=== PATIENT | male | born 1995 | race African-American/Black ===

== ENCOUNTER 2017-07-20 16:52 | Emergency (ER) | payer OTHER ==
[~2017-07-20] VITALS: Ht 154.9 cm; Wt 77.1 kg
[2017-07-20 17:40] VITALS: BP 117/55
--- NOTE | 2017-07-20 18:04 | ED General ---
General Chief Complaint: Cough/Cold/Flu Symptoms Stated Complaint: THROAT PAIN/VOMITING RED AND YELLOW Nursing Triage Note: AMB TO ED HAS BEEN HAVING COUGH CONGESTION. TODAY WAS COUGHING TILL HE VOMITED. Nursing Sepsis Screen: No Definite Risk Source of Information: Patient Exam Limitations: No Limitations History of Present Illness Date Seen by Provider: Jul 20, 2017 Time Seen by Provider: 18:02 Initial Comments To ER with c/o sore throat, loss of voice x2 days. No fevers, denies cough. Last night, was drinking hard liquor, this morning vomited yellow bile with what appeared to be a tinge of blood. C/o left upper abdominal pain. Timing/Duration: 1-2 Days Severity: Moderate Associated Systoms: No Cough, No Fever/Chills, Nausea/Vomiting Allergies and Home Medications Allergies Coded Allergies: No Known Drug Allergies (Unverified , 07/20/17) Constitutional: see HPI, No chills, No fever EENTM: see HPI Respiratory: see HPI, No cough Gastrointestinal: abdominal pain, hematemesis, nausea, vomiting Genitourinary: no symptoms reported Musculoskeletal: no symptoms reported Skin: no symptoms reported Past Gkbucjo-Rilvyb-Ridzdt Hx Patient Social History Alcohol Use: Occasionally Uses Recreational Drug Use: No Smoking Status: Never a Smoker Recent Foreign Travel: No Contact w/Someone Who Travel: No Recent Infectious Disease Expo: No Physical Exam Vital Signs Vital Sign - Last 12Hours 07/20/17 17:40 Temp 97.6 Pulse 88 Resp 18 B/P (MAP) 117/55 (75) Pulse Ox 98 Capillary Refill : Less Than 3 Seconds General Appearance: No Apparent Distress, WD/WN, Thin, Other (healthy appearing ) Eyes: Bilateral Eye Normal Inspection, Bilateral Eye PERRL, Bilateral Eye EOMI HEENT: PERRL/EOMI, TMs Normal, Pharynx Normal, No Pharyngeal Erythema Neck: Full Range of Motion, Normal Inspection, No Lymphadenopathy (L), No Lymphadenopathy (R) Respiratory: Normal Breath Sounds, No Accessory Muscle Use, No Respiratory Distress Gastrointestinal: Normal Bowel Sounds, Non Tender, Soft Extremity: Normal Capillary Refill, Normal Inspection, Normal Range of Motion Neurologic/Psychiatric: Alert, Oriented x3, No Motor/Sensory Deficits Skin: Normal Color, Warm/Dry Progress/Results/Core Measures Suspected Sepsis Recent Fever Within 48 Hours: No Infection Criteria Present: None New/Unexplained Altered Menta: No Sepsis Screen: No Definite Risk Sepsis Diagnosis: SIRS Temperature:97.6 Pulse: 88 Respiratory Rate: 18 Laboratory Tests 07/20/17 18:13: White Blood Count 8.2 Blood Pressure 117 /55 Mean: 75 Laboratory Tests 07/20/17 18:13: Creatinine 0.99, Platelet Count 144, Total Bilirubin 1.5H Results/Orders Lab Results Laboratory Tests Test 07/20/17 18:13 Range/Units White Blood Count 8.2 4.3-11.0 10^3/uL Red Blood Count 5.04 4.35-5.85 10^6/uL Hemoglobin 15.1 13.3-17.7 G/DL Hematocrit 43 40-54 % Mean Corpuscular Volume 86 80-99 FL Mean Corpuscular Hemoglobin 30 25-34 PG Mean Corpuscular Hemoglobin Concent 35 32-36 G/DL Red Cell Distribution Width 12.4 10.0-14.5 % Platelet Count 144 130-400 10^3/uL Mean Platelet Volume 11.0 H 7.4-10.4 FL Neutrophils (%) (Auto) 91 H 42-75 % Lymphocytes (%) (Auto) 3 L 12-44 % Monocytes (%) (Auto) 6 0-12 % Eosinophils (%) (Auto) 0 0-10 % Basophils (%) (Auto) 0 0-10 % Neutrophils # (Auto) 7.5 1.8-7.8 X 10^3 Lymphocytes # (Auto) 0.2 L 1.0-4.0 X 10^3 Monocytes # (Auto) 0.5 0.0-1.0 X 10^3 Eosinophils # (Auto) 0.0 0.0-0.3 10^3/uL Basophils # (Auto) 0.0 0.0-0.1 10^3/uL Neutrophils % (Manual) 93 % Lymphocytes % (Manual) 2 % Monocytes % (Manual) 5 % Eosinophils % (Manual) 0 % Basophils % (Manual) 0 % Band Neutrophils 0 % Blood Morphology Comment NORMAL Sodium Level 145 135-145 MMOL/L Potassium Level 4.0 3.6-5.0 MMOL/L Chloride Level 105 98-107 MMOL/L Carbon Dioxide Level 28 21-32 MMOL/L Anion Gap 12 5-14 MMOL/L Blood Urea Nitrogen 18 7-18 MG/DL Creatinine 0.99 0.60-1.30 MG/DL Estimat Glomerular Filtration Rate > 60 BUN/Creatinine Ratio 18 Glucose Level 96 70-105 MG/DL Calcium Level 9.7 8.5-10.1 MG/DL Total Bilirubin 1.5 H 0.1-1.0 MG/DL Aspartate Amino Transf (AST/SGOT) 22 5-34 U/L Alanine Aminotransferase (ALT/SGPT) 21 0-55 U/L Alkaline Phosphatase 57 40-136 U/L Total Protein 7.9 6.4-8.2 GM/DL Albumin 4.6 H 3.2-4.5 GM/DL Lipase 5 L 8-78 U/L My Orders Orders - DAR ARRIETA [employer] Cbc With Automated Diff (07/20/17 18:01) Lipase (07/20/17 18:01) Comprehensive Metabolic Panel (07/20/17 18:01) Lidocaine 2% Viscous 15 Ml (Xylocaine Vi (07/20/17 18:15) Antacid Suspension (Mylanta Suspension (07/20/17 18:15) Manual Differential (07/20/17 18:13) Medications Given in ED Current Medications Medications Dose Ordered Sig/Elver Route Start Time Stop Time Status Last Admin Dose Admin Al Hydrox/Mg Hydrox/Simethicone 30 ml ONCE ONCE PO 07/20/17 18:15 07/20/17 18:16 DC 07/20/17 18:14 30 ML Lidocaine HCl 15 ml ONCE ONCE PO 07/20/17 18:15 07/20/17 18:16 DC 07/20/17 18:14 15 ML Vital Signs/I&O Vital Sign - Last 12Hours 07/20/17 17:40 Temp 97.6 Pulse 88 Resp 18 B/P (MAP) 117/55 (75) Pulse Ox 98 Capillary Refill : Less Than 3 Seconds Blood Pressure Mean: 75 Departure Impression Impression: Primary Impression: Viral syndrome Additional Impressions: Laryngitis Gastritis Disposition: 01 HOME, SELF-CARE (All) Condition: Stable Departure-Patient Inst. Decision time for Depature: 18:50 Referrals: NO,LOCAL PHYSICIAN (PCP/Family) Primary Care Physician Patient Instructions: Gastritis, Laryngitis Add. Discharge Instructions: 1. Avoid alcohol use for the next 2-3 weeks 2. Acid log data technician as directed 3. Rest your voice as much as possible. This is the result of a virus and will resolve over the course of the week. All discharge instructions reviewed with patient and/or family. Voiced understanding. Work/School Note: Work Release Form Date Seen in the Emergency Department: Jul 20, 2017 Return to Work: Jul 22, 2017 DAR ARRIETA APRN Jul 20, 2017 18:04
[2017-07-20] MEDS ORDERED: LIDOCAINE 2% VISCOUS 15 ML UDC PO ONE (18:15)
[2017-07-20] MEDS ORDERED: ANTACID SUSP 30 ML UDC (MYLANTA) PO ONE (18:15)
[2017-07-20 18:20] LABS: BASOPHILS % (AUTO) 0 % (0-10); EOSINOPHILS % (AUTO) 0 % (0-10); HEMATOCRIT 43 % (40-54); HEMOGLOBIN 15.1 G/DL (13.3-17.7); LYMPHOCYTES # (AUTO) 0.2 X 10^3 (1.0-4.0); LYMPHOCYTES % (AUTO) 3 % (12-44); MEAN CORPUSCULAR HEMOGLOBIN 30 PG (25-34); MEAN CORPUSCULAR HGB CONC 35 G/DL (32-36); MEAN CORPUSCULAR VOLUME 86 FL (80-99); MONOCYTES # (AUTO) 0.5 X 10^3 (0.0-1.0); MONOCYTES % (AUTO) 6 % (0-12); NEUTROPHILS # (AUTO) 7.5 X 10^3 (1.8-7.8); NEUTROPHILS % (AUTO) 91 % (42-75); PLATELET COUNT 144 10^3/uL (130-400); RED BLOOD COUNT 5.04 10^6/uL (4.35-5.85); RED CELL DISTRIBUTION WIDTH 12.4 % (10.0-14.5); WHITE BLOOD COUNT 8.2 10^3/uL (4.3-11.0)
[2017-07-20 18:38] LABS: BAND NEUTROPHILS 0 %; BASOPHILS % (MANUAL) 0 %; EOSINOPHILS % (MANUAL) 0 %; LYMPHOCYTES % (MANUAL) 2 %; MONOCYTES % (MANUAL) 5 %; NEUTROPHILS % (MANUAL) 93 %; RBC MORPH NORMAL
[2017-07-20 18:40] LABS: ALANINE AMINOTRANSFERASE 21 U/L (0-55); ALBUMIN 4.6 GM/DL (3.2-4.5); ALKALINE PHOSPHATASE 57 U/L (40-136); BILIRUBIN,TOTAL 1.5 MG/DL (0.1-1.0); BUN/CREATININE RATIO 18; CALCIUM 9.7 MG/DL (8.5-10.1); CARBON DIOXIDE 28 MMOL/L (21-32); CHLORIDE 105 MMOL/L (98-107); CREATININE SERUM 0.99 MG/DL (0.60-1.30); GFR ESTIMATED > 60; GLUCOSE 96 MG/DL (70-105); LIPASE 5 U/L (8-78); SODIUM 145 MMOL/L (135-145); TOTAL PROTEIN 7.9 GM/DL (6.4-8.2)
[2017-07-20] MEDS ORDERED: OMEP40CA36 PO (18:54)
== END 2017-07-20 19:05 | disposition home or self-care (01) ==
LOC: ER 16:55
DX: B34.9 Viral infection, unspecified (principal); J04.0 Acute laryngitis; K29.70 Gastritis, unspecified, without bleeding
CPT/HCPCS: 36415; 80053; 83690; 85007; 85027; 99283